=== PATIENT | female | born 1995 | race Caucasian/White ===

== ENCOUNTER 2023-04-23 08:15 | Observation (INO) | payer OTHER ==
[~2023-04-23] VITALS: Ht 152.4 cm; Wt 50.0 kg
[~2023-04-23 08:15] MED LIST: ADDERALL10 MG PO; CARAFATE 1GM1 G PO; CELEXA 20MG20 MG/TAB PO; CIPRO 500MG TA500 MG PO; LEVSIN0.125 M1 PO; PERCOCET 325 MG1 TA2 PO; PRIL40 PO; PROMETHAZINE12.5 M5 PO; VOLNEA 0.15-0.1 EACH PO; ZYRTEC10MGSGL
[2023-04-23 11:04] LABS: COLLECTION METHOD CLEAN CATCH
[2023-04-23 11:57] LABS: ALBUMIN 3.1 gm/dL (3.5-5.0); BILIRUBIN,TOTAL 0.3 mg/dL (0.2-1.2); C-REACTIVE PROTEIN 7.28 mg/dL (0.00-0.50); CREATININE, serum 0.65 mg/dL (0.57-1.11); POTASSIUM 3.9 mmol/L (3.5-4.5); TOTAL PROTEIN 6.6 gm/dL (6.2-8.1)
[2023-04-23 12:11] LABS: BASO % 0.4 % (0.0-2.0); EOS # 0.3 K/mm3 (0.0-0.7); EOS % 3.8 % (0.0-4.0); HEMOGLOBIN 10.6 g/dl (12.5-16.0); LYMPH # 1.9 K/mm3 (1.2-3.4); LYMPH % 21.4 % (20.0-51.0); MEAN CELL VOLUME 81 fl (80.0-100.0); MEAN CORPUSCULAR HEMOGLOBIN 28 pg (27-31); MEAN CORPUSCULAR HGB CONC 34 g/dl (33.0-37.0); MEAN PLATELET VOLUME 9.5 fl (7.4-10.4); MONO # 0.7 K/mm3 (0.1-0.6); MONO % 7.2 % (1.7-9.3); PLATELET COUNT 279 K/mm3 (130-400); RED BLOOD COUNT 3.85 M/mm3 (4.10-5.30); REDCELL DISTRIBUTION WIDTH-CV 13.8 % (11.5-14.5)
[2023-04-23 13:49] VITALS: BP 110/68; PULSE 92; TEMP 98
[2023-04-23 13:49] LABS: URINE APPEARANCE Clear (CLEAR/HAZY); URINE COLOR Straw (YELLOW)
[2023-04-23 13:50] LABS: SQUAMOUS EPITHELIAL 0-2 /hpf (0-10); URINE BLOOD TRACE-LYSED (NEGATIVE); URINE GLUCOSE Negative (NEGATIVE); URINE KETONE Negative (NEGATIVE); URINE NITRATE Negative (NEGATIVE); URINE PROTEIN(semi-quant) Negative (NEGATIVE); URINE RBC 0-2 /hpf (0-2); URINE UROBILINOGEN 0.2 E.U/dL (0.2-1.0); URINE WBC 0-2 /hpf (0-2)
[2023-04-23 13:51] LABS: URINE BACTERIA Moderate /hpf (NONE SEEN)
[2023-04-23 15:27] VITALS: BP 107/64; PULSE 92; TEMP 98.3
--- NOTE | 2023-04-23 16:23 | NUR ---
Pt. to the floor at 1430. Pt. was A&OX3, assessment complete. INT to lt. forearm patent. Pt. ok at this time. Admit assessment complete at this time. Pt. very nauseated and pain at an 8 on painscale, giving pain meds and nausea meds per orders. Pt. denies further needs, call light within reach.
[2023-04-23 17:03] VITALS: BP_SYST 107
[2023-04-23 19:22] VITALS: BP 123/57; PULSE 87; TEMP 98
--- NOTE | 2023-04-23 20:00 | NUR ---
PT A&O X4 LAYING IN BED. VSS. DENYING N/V AT THIS TIME. C/O ABD PAIN 11/29, SEE MAR. INT TO LEFT AC PATENT. ENCOURAGED PT TO AMBULATED Q2HR BUT DENIES AT THIS TIME. BED LOWERED & CALL LIGHT IN REACH, DENYING FURTHER NEEDS.
[2023-04-23 21:49] VITALS: BP_SYST 123
[2023-04-23 23:39] VITALS: BP 113/62; BP_SYST 141; PULSE 81; TEMP 98.7
[2023-04-24 00:14] VITALS: BP_SYST 113
[2023-04-24 03:25] VITALS: BP 110/38; PULSE 85; TEMP 99.2
[2023-04-24 03:52] VITALS: BP 107/61
[2023-04-24 03:53] VITALS: BP_SYST 107
--- NOTE | 2023-04-24 06:06 | NUR ---
PT HAD UNEVENTFUL NIGHT. PAIN WAS CONTROLLED WITH SCHEDULED TYLENOL & TORADOL. C/O NAUSEA THIS AM - GIVEN PRN PHENERGAN. CALL LIGHT IN REACH & DENYING FURTHER NEEDS
[2023-04-24 07:31] VITALS: BP 113/65; PULSE 88; TEMP 99.8
[2023-04-24 09:00] VITALS: BP_SYST 113
--- NOTE | 2023-04-24 09:00 | NUR ---
Pt. sitting up in bed. Pt. is A&OX3, assessment complete. INT to lt. forearm patent. Pt. reports feeling better this am. Pt. denies further needs.
[2023-04-24] MEDS ORDERED: TORADOL 10MG TA10 MG PO (11:35)
--- NOTE | 2023-04-24 12:21 | NUR ---
ironing worker met with patient to discuss discharge planning. Patient confirmed she lives in [place] with her , Keanu, Francine#: [phone]. Patient expressed her primary care physician is Traci Hernandez and her preferred pharmacy is [facility]. Patient denied any difficulty affording her medications. Patient does not have a DPOA-HC and did not want to establish one during the hospital stay. Patient reports she has no DME and is indpendent when she is at home. Patient would like to return home at time of discharge. Discharge Plan: Home
--- NOTE | 2023-04-24 13:38 | NUR ---
Pt. with discharge orders. INT discontinued from lt. forearm. Reviewed and gave discharge paperwork to the pt. Pt. voices understanding. Pt. dressed and escorted out.
== END 2023-04-24 13:30 | disposition home or self-care (01) ==
LOC: COL.ER 08:15 → SURG 12:37 → COL.ER 12:38 → SURG 12:38
PROVIDERS: Family Medicine; ADMIT Surgery
DX: G89.18 Other acute postprocedural pain (principal); R10.31 Right lower quadrant pain; R11.0 Nausea; R14.0 Abdominal distension (gaseous); Z90.49 Acquired absence of other specified parts of digestive tract
CPT/HCPCS: G0378; J1170; J1790; J1885; J2270; J2405; J2550; J7030